=== PATIENT | male | born 1985 | race Caucasian/White ===

== ENCOUNTER 2017-04-23 18:52 | Emergency (ER) | payer OTHER ==
[2017-04-23 19:43] LABS: BASOPHIL % 0.9 % (0-2); PLATELET COUNT 316 x10^3mcL (130-400)
[2017-04-23 19:45] LABS: CALCIUM 8.6 mg/dL (8.5-10.1); CARBON DIOXIDE 29.5 mmol/L (21-32); CHLORIDE SERUM 103 mmol/L (98-107); CREATININE SERUM 0.8 mg/dL (0.7-1.3); GFR1 > 60 mL/min; GLUCOSE SERUM 97 mg/dL (74-106); POTASSIUM SERUM 3.8 mmol/L (3.5-5.1); SODIUM SERUM 142 mmol/L (136-145)
[2017-04-23 19:58] LABS: ALBUMIN 3.9 g/dL (3.4-5.0); ALKALINE PHOSPHATASE 72 U/L (46-116); ALT/SGPT 18 U/L (16-63); AST/SGOT 11 U/L (15-37); BILIRUBIN TOTAL 0.29 mg/dL (0.20-1.00); TOTAL PROTEIN, SERUM 7.5 g/dL (6.4-8.2)
[2017-04-23 20:03] LABS: RED CELL DISTRIBUTION WIDTH 15.6 % (11.5-14.5)
[2017-04-23 21:43] LABS: UA SPECIFIC GRAVITY 1.025 (1.005-1.035); microscopic required? YES; urine erythrocyte NEGATIVE (NEGATIVE)
[2017-04-23 21:52] LABS: AMPHETAMINE QUAL UR NONE DETECTED (NEG <=1000)
[2017-04-24 04:28] VITALS: BP 104/74
== END 2017-04-24 04:28 | disposition short-term general hospital (02) ==
LOC: ED 18:52
PROVIDERS: Emergency Medicine
DX: F32.9 Major depressive disorder, single episode, unspecified (principal); T39.1X1A Poisoning by 4-Aminophenol derivatives, accidental (unintentional), initial encounter; T42.4X1A Poisoning by benzodiazepines, accidental (unintentional), initial encounter; Y92.89 Other specified places as the place of occurrence of the external cause
CPT/HCPCS: 36600; 83880; G0480; J2310; J7030; Q0092

== ENCOUNTER 2018-10-11 16:40 | Inpatient (IN) | payer OTHER ==
[~2018-10-11] VITALS: Ht 177.8 cm; Wt 65.3 kg
[2018-10-11 16:52] VITALS: Ht 177.8 cm; Wt 65.3 kg
[2018-10-11 17:06] LABS: BASOPHIL % 0.4 % (0-2); PLATELET COUNT 347 x10^3mcL (130-400)
[2018-10-11 17:11] LABS: RED CELL DISTRIBUTION WIDTH 15.1 % (11.5-14.5)
[2018-10-11 17:18] LABS: ALBUMIN 3.8 g/dL (3.4-5.0); ALKALINE PHOSPHATASE 85 U/L (46-116); ALT/SGPT 21 U/L (16-63); AST/SGOT 10 U/L (15-37); BILIRUBIN TOTAL 0.4 mg/dL (0.20-1.00); CALCIUM 8.6 mg/dL (8.5-10.1); CARBON DIOXIDE 27.1 mmol/L (21-32); CHLORIDE SERUM 107 mmol/L (98-107); GFR1 > 60 mL/min; GLUCOSE SERUM 145 mg/dL (74-106); SODIUM SERUM 145 mmol/L (136-145); TOTAL PROTEIN, SERUM 7.2 g/dL (6.4-8.2)
[2018-10-11 17:21] LABS: POTASSIUM SERUM 2.8 mmol/L (3.5-5.1)
[2018-10-11 20:20] LABS: AMPHETAMINE QUAL UR POSITIVE (See below)
[2018-10-11 23:04] VITALS: BP 141/91
[2018-10-12 05:56] LABS: BASOPHIL % 0.3 % (0-2); PLATELET COUNT 315 x10^3mcL (130-400)
[2018-10-12 06:00] VITALS: BP 132/96
[2018-10-12 06:14] LABS: ALBUMIN 3.4 g/dL (3.4-5.0); ALKALINE PHOSPHATASE 81 U/L (46-116); ALT/SGPT 20 U/L (16-63); AST/SGOT 12 U/L (15-37); BILIRUBIN TOTAL 0.6 mg/dL (0.20-1.00); CALCIUM 8.4 mg/dL (8.5-10.1); CARBON DIOXIDE 28.5 mmol/L (21-32); CHLORIDE SERUM 109 mmol/L (98-107); CREATININE SERUM 0.8 mg/dL (0.7-1.3); GFR1 > 60 mL/min; GLUCOSE SERUM 99 mg/dL (74-106); MAGNESIUM 2.4 mg/dL (1.8-2.4); PHOSPHOROUS 3.3 mg/dL (2.5-4.9); POTASSIUM SERUM 3.3 mmol/L (3.5-5.1); SODIUM SERUM 145 mmol/L (136-145); TOTAL PROTEIN, SERUM 6.3 g/dL (6.4-8.2)
[2018-10-12 06:35] LABS: RED CELL DISTRIBUTION WIDTH 14.6 % (11.5-14.5)
[2018-10-12 08:40] VITALS: BP 139/102
[2018-10-12 12:41] VITALS: BP 136/110
[2018-10-12 18:49] VITALS: BP 85/65
[2018-10-12 20:59] VITALS: BP 132/97
[2018-10-13 05:27] VITALS: BP 132/97
[2018-10-13 06:45] VITALS: BP 129/94
[2018-10-13 07:27] LABS: BASOPHIL % 0.2 % (0-2); PLATELET COUNT 305 x10^3mcL (130-400)
[2018-10-13 07:51] LABS: CALCIUM 8.5 mg/dL (8.5-10.1); CHLORIDE SERUM 106 mmol/L (98-107); CREATININE SERUM 0.8 mg/dL (0.7-1.3); GFR1 > 60 mL/min; GLUCOSE SERUM 89 mg/dL (74-106); POTASSIUM SERUM 3.8 mmol/L (3.5-5.1); SODIUM SERUM 141 mmol/L (136-145)
[2018-10-13 08:31] LABS: RED CELL DISTRIBUTION WIDTH 15.1 % (11.5-14.5)
[2018-10-13 09:02] VITALS: BP 131/92
[2018-10-13 16:13] VITALS: BP 139/99
[2018-10-13 20:45] VITALS: BP 91/44
[2018-10-14 05:35] VITALS: BP 133/86
[2018-10-14 08:58] VITALS: BP 138/85
[2018-10-14 12:37] VITALS: BP 148/100
[2018-10-14 16:30] VITALS: BP 137/92
[2018-10-14 21:32] VITALS: BP 139/95
[2018-10-15 05:45] VITALS: BP 116/69
[2018-10-15 08:30] VITALS: BP 135/86
[2018-10-15] MEDS ORDERED: RISPERDAL0.25 MG PO (09:58)
[2018-10-15 13:46] VITALS: BP 116/69
[2018-10-15 14:00] VITALS: BP 136/94
[2018-10-15 16:44] VITALS: BP 134/91
[2018-10-15 19:40] VITALS: BP 132/90
== END 2018-10-15 20:49 | DRG 917 ==
LOC: ED 16:40 → DU 21:46 → EDBEDREQ 21:49 → DU 22:43
PROVIDERS: Emergency Medicine; Internal Medicine Pulmonary Disease; ADMIT Internal Medicine Pulmonary Disease
DX: T42.4X2A Poisoning by benzodiazepines, intentional self-harm, initial encounter (principal); G93.41 Metabolic encephalopathy; F32.9 Major depressive disorder, single episode, unspecified; E87.6 Hypokalemia; E83.42 Hypomagnesemia; Y92.89 Other specified places as the place of occurrence of the external cause; F15.10 Other stimulant abuse, uncomplicated; T40.2X2A Poisoning by other opioids, intentional self-harm, initial encounter; F29 Unspecified psychosis not due to a substance or known physiological condition
CPT/HCPCS: G0480; J1630; J2060; J2310; J2405; J3475; J3480; J3490; J7030; J7120

== ENCOUNTER 2019-09-10 13:04 | Emergency (ER) | payer OTHER ==
[~2019-09-10] VITALS: Ht 180.3 cm; Wt 77.1 kg
[~2019-09-10 13:04] MED LIST: RISPERDAL0.25 MG PO
[2019-09-10 13:14] VITALS: Ht 180.3 cm; Wt 77.1 kg
[2019-09-10 13:41] LABS: BASOPHIL % 0.8 % (0-2); PLATELET COUNT 360 x10^3mcL (130-400); RED CELL DISTRIBUTION WIDTH 13.7 % (11.5-14.5)
[2019-09-10 13:54] LABS: CALCIUM 8.4 mg/dL (8.5-10.1); CARBON DIOXIDE 25.6 mmol/L (21-32); CHLORIDE SERUM 106 mmol/L (98-107); CREATININE SERUM 0.8 mg/dL (0.7-1.3); GFR1 > 60 mL/min; GLUCOSE SERUM 108 mg/dL (74-106); POTASSIUM SERUM 3.7 mmol/L (3.5-5.1); SODIUM SERUM 146 mmol/L (136-145)
[2019-09-10 14:07] LABS: ALBUMIN 4.6 g/dL (3.4-5.0); ALKALINE PHOSPHATASE 112 U/L (46-116); ALT/SGPT 26 U/L (16-63); AST/SGOT 34 U/L (15-37); BILIRUBIN TOTAL 0.4 mg/dL (0.20-1.00)
[2019-09-10 14:24] LABS: T4(THYROXINE) 4.5 ug/dL (4.7-13.3); TOTAL PROTEIN, SERUM 8.6 g/dL (6.4-8.2)
[2019-09-10 18:25] VITALS: BP 134/81
== END 2019-09-10 18:15 | disposition left against medical advice (07) ==
LOC: ED 13:04
PROVIDERS: Emergency Medicine
DX: F10.129 Alcohol abuse with intoxication, unspecified (principal)
CPT/HCPCS: 36415; G0480; J1200; J1630; J2060

== ENCOUNTER 2019-09-18 16:48 | Emergency (ER) | payer OTHER ==
[~2019-09-18] VITALS: Ht 180.3 cm; Wt 77.1 kg
[2019-09-18 16:54] VITALS: Ht 180.3 cm; Wt 77.1 kg
[2019-09-18 18:03] VITALS: BP 148/102
== END 2019-09-18 18:03 | disposition other institution (70) ==
LOC: ED 16:48
DX: Z02.89 Encounter for other administrative examinations (principal)

== ENCOUNTER 2019-09-29 12:34 | Inpatient (IN) | payer MEDICAID ==
[~2019-09-29] VITALS: Ht 177.8 cm; Wt 70.1 kg
[2019-09-29 12:40] VITALS: Ht 177.8 cm; Wt 70.1 kg
[2019-09-29 13:13] LABS: BASOPHIL % 1.1 % (0-2); PLATELET COUNT 314 x10^3mcL (130-400)
[2019-09-29 13:15] LABS: RED CELL DISTRIBUTION WIDTH 14.9 % (11.5-14.5)
[2019-09-29 13:32] LABS: CALCIUM 8.4 mg/dL (8.5-10.1); CARBON DIOXIDE 26.7 mmol/L (21-32); CHLORIDE SERUM 99 mmol/L (98-107); CREATININE SERUM 0.9 mg/dL (0.7-1.3); GFR1 > 60 mL/min; GLUCOSE SERUM 132 mg/dL (74-106); POTASSIUM SERUM 3.9 mmol/L (3.5-5.1); SODIUM SERUM 142 mmol/L (136-145)
[2019-09-29 13:40] LABS: ALBUMIN 4.8 g/dL (3.4-5.0); ALKALINE PHOSPHATASE 129 U/L (46-116); ALT/SGPT 89 U/L (16-63); AST/SGOT 121 U/L (15-37); BILIRUBIN TOTAL 0.7 mg/dL (0.20-1.00)
[2019-09-29] MEDS ORDERED: HORIZANT600 M1 PO (13:41)
[2019-09-29] MEDS ORDERED: SEROQUEL300 MG PO (13:42)
[2019-09-29] MEDS ORDERED: BUNAVAIL PO (13:43)
[2019-09-29 13:45] LABS: TOTAL PROTEIN, SERUM 9.2 g/dL (6.4-8.2)
[2019-09-29 17:02] VITALS: BP 156/69
[2019-09-29 17:23] VITALS: BP 141/65
[2019-09-29 20:29] VITALS: BP 147/97
[2019-09-30 05:34] VITALS: BP 136/73
[2019-09-30 06:49] LABS: BASOPHIL % 0.4 % (0-2); PLATELET COUNT 201 x10^3mcL (130-400)
[2019-09-30 07:31] LABS: RED CELL DISTRIBUTION WIDTH 14.6 % (11.5-14.5)
[2019-09-30 07:52] LABS: CALCIUM 8.8 mg/dL (8.5-10.1); CARBON DIOXIDE 33.2 mmol/L (21-32); CHLORIDE SERUM 97 mmol/L (98-107); CREATININE SERUM 0.8 mg/dL (0.7-1.3); GFR1 > 60 mL/min; GLUCOSE SERUM 92 mg/dL (74-106); MAGNESIUM 1.3 mg/dL (1.8-2.4); PHOSPHOROUS 2.5 mg/dL (2.5-4.9); POTASSIUM SERUM 4.4 mmol/L (3.5-5.1); SODIUM SERUM 134 mmol/L (136-145)
[2019-09-30 08:08] VITALS: BP 153/93
[2019-09-30 12:37] VITALS: BP 150/78
[2019-09-30 17:37] VITALS: BP 147/85
[2019-09-30 22:59] VITALS: BP 154/87
[2019-09-30 23:00] VITALS: BP 147/88
[2019-10-01 06:16] VITALS: BP 133/93
[2019-10-01 06:38] LABS: BASOPHIL % 0.5 % (0-2); PLATELET COUNT 164 x10^3mcL (130-400); RED CELL DISTRIBUTION WIDTH 14.4 % (11.5-14.5)
[2019-10-01 07:58] LABS: CALCIUM 8.3 mg/dL (8.5-10.1); CARBON DIOXIDE 33.2 mmol/L (21-32); CHLORIDE SERUM 97 mmol/L (98-107); CREATININE SERUM 0.8 mg/dL (0.7-1.3); GFR1 > 60 mL/min; GLUCOSE SERUM 170 mg/dL (74-106); PHOSPHOROUS 3.2 mg/dL (2.5-4.9); POTASSIUM SERUM 4.4 mmol/L (3.5-5.1); SODIUM SERUM 135 mmol/L (136-145)
[2019-10-01 08:38] VITALS: BP 149/94
[2019-10-01] MEDS ORDERED: LEVAQUIN500 M1 PO (10:30)
[2019-10-01] MEDS ORDERED: FOL1 PO (10:30)
[2019-10-01] MEDS ORDERED: THI100 PO (10:31)
[2019-10-01] MEDS ORDERED: THERA TABLET400 MCG PO (10:31)
[2019-10-01 12:19] VITALS: BP 136/77
[2019-10-01 13:35] VITALS: BP 136/77
== END 2019-10-01 16:54 | disposition home or self-care (01) | DRG 137 ==
LOC: ED 12:34 → DU 15:07
PROVIDERS: Emergency Medicine; Internal Medicine; ADMIT Family Medicine
DX: J69.0 Pneumonitis due to inhalation of food and vomit (principal); G93.41 Metabolic encephalopathy; F10.231 Alcohol dependence with withdrawal delirium; E83.51 Hypocalcemia; F10.239 Alcohol dependence with withdrawal, unspecified; R74.0 Nonspecific elevation of levels of transaminase and lactic acid dehydrogenase [LDH]; D63.8 Anemia in other chronic diseases classified elsewhere; F11.10 Opioid abuse, uncomplicated; F32.9 Major depressive disorder, single episode, unspecified; Z68.22 Body mass index [BMI] 22.0-22.9, adult; Y90.8 Blood alcohol level of 240 mg/100 ml or more
CPT/HCPCS: G0378; G0480; J1956; J2060; J2405; J3475; J7030; Q0092